=== PATIENT | male | born 1975 | race Caucasian/White ===

== ENCOUNTER 2017-02-20 21:47 | Emergency (ER) | payer MEDICAID ==
[~2017-02-20] VITALS: Ht 172.7 cm; Wt 63.5 kg
[2017-02-20 21:48] VITALS: BP 115/77
[2017-02-20] MEDS ORDERED: KETOROLAC 30 MG/1 ML ONE (22:26)
[2017-02-20] MEDS ORDERED: METHOCARBAMOL 750 MG TABLET ONE (22:26)
[2017-02-20] MEDS ORDERED: KETOROLAC 30 MG/1 ML IM ONE (22:30)
[2017-02-20] MEDS ORDERED: METHOCARBAMOL 750 MG TABLET PO ONE (22:30)
== END 2017-02-20 22:51 | disposition home or self-care (01) ==
LOC: ED 22:42
DX: M54.5 Low back pain (principal)
CPT/HCPCS: 96372; 99283; J1885

== ENCOUNTER 2018-05-25 15:52 | Emergency (ER) | payer MEDICAID ==
[~2018-05-25] VITALS: Ht 167.6 cm; Wt 60.3 kg
[2018-05-25] MEDS ORDERED: SPIR50TA4 PO (16:16)
[2018-05-25] MEDS ORDERED: PNV1TAB.5 PO (16:16)
[2018-05-25] MEDS ORDERED: ESTR2TAB PO (16:16)
[2018-05-25 18:04] VITALS: BP 114/83
== END 2018-05-25 18:06 | disposition home or self-care (01) ==
LOC: ED 18:00
DX: F44.6 Conversion disorder with sensory symptom or deficit (principal); F17.200 Nicotine dependence, unspecified, uncomplicated
CPT/HCPCS: 70450; 99284

== ENCOUNTER 2018-07-30 17:48 | Emergency (ER) | payer MEDICAID ==
[~2018-07-30] VITALS: Ht 167.6 cm; Wt 56.4 kg
[~2018-07-30 17:48] MED LIST: ESTR2TAB PO; PNV1TAB.5 PO; SPIR50TA4 PO
[2018-07-30] MEDS ORDERED: SODIUM CHLORIDE FLUSH 10ML SYR IVF ONE (18:00)
[2018-07-30 18:27] LABS: BASOPHILS # (AUTO) 0.06 x10^3/uL (0-0.1); BASOPHILS % (AUTO) 1 % (0-1); EOSINOPHILS # (AUTO) 0.01 x10^3/uL (0-0.4); EOSINOPHILS % (AUTO) 0 % (1-7); LYMPHOCYTES # (AUTO) 1.31 x10^3/uL (1-3.4); LYMPHOCYTES % (AUTO) 10 % (22-44); MD NO; MEAN CORPUSCULAR HEMOGLOBIN 30.9 pg (27.5-34.5); MEAN CORPUSCULAR HGB CONC 33.9 g/dL (33.2-36.2); MONOCYTES # (AUTO) 0.24 x10^3/uL (0.2-0.8); MONOCYTES % (AUTO) 2 % (2-9); NEUTROPHILS # (AUTO) 11.48 x10^3/uL (1.8-6.8); NEUTROPHILS % (AUTO) 88 % (42-75); PLATELET COUNT 399 x10^3/uL (130-400); RED BLOOD COUNT 5.23 x10^6/uL (4.38-5.82); RED CELL DISTRIBUTION WIDTH 14.4 % (9.4-14.8)
[2018-07-30 18:40] LABS: ALANINE AMINOTRANSFERASE 51 U/L (12-78); ALBUMIN 4.2 g/dL (3.4-5.0); ANION GAP 8 mmol/L (5-15); CALCIUM 9.6 mg/dL (8.5-10.1); CHLORIDE 98 mmol/L (98-107); CREATININE 0.91 mg/dL (0.7-1.3)
[2018-07-30 18:42] LABS: ALKALINE PHOSPHATASE 65 U/L (45-117); BILIRUBIN,TOTAL 0.7 mg/dL (0.2-1.0); TOTAL PROTEIN 8.1 g/dL (6.4-8.2)
--- NOTE | 2018-07-30 18:53 | NUR ---
Pt to 15 from lobby via wheelchair
[2018-07-30 19:28] LABS: MICROSCOPIC NOT IND
[2018-07-30] MEDS ORDERED: HYDROcodone/APAP 5/325 TABLET PO ONE (19:30)
[2018-07-30 19:32] LABS: CULTURE INDICATED? NO
--- NOTE | 2018-07-30 19:47 | NUR ---
PT ASLEEP SO PAIN MEDS ARE BEING HELD AT THIS TIME.
[2018-07-30 20:30] VITALS: BP 127/69
== END 2018-07-30 20:32 | disposition home or self-care (01) ==
LOC: ED 19:42
DX: R51 Headache (principal); R11.2 Nausea with vomiting, unspecified; M79.10 Myalgia, unspecified site
CPT/HCPCS: 36415; 80053; 81003; 83690; 85025; 99283

== ENCOUNTER 2018-09-07 02:18 | Emergency (ER) | payer MEDICAID ==
[~2018-09-07] VITALS: Ht 167.6 cm; Wt 70.0 kg
[2018-09-07] MEDS ORDERED: ASPIRIN 81 MG TABLET CHEW ONE (02:59)
[2018-09-07] MEDS ORDERED: ASPIRIN 81 MG TABLET CHEW PO ONE (03:00)
[2018-09-07] MEDS ORDERED: AZIT500T5 PO (03:04)
[2018-09-07 03:17] LABS: BASOPHILS # (AUTO) 0.05 x10^3/uL (0-0.1); BASOPHILS % (AUTO) 1 % (0-1); EOSINOPHILS # (AUTO) 0.05 x10^3/uL (0-0.4); EOSINOPHILS % (AUTO) 1 % (1-7); LYMPHOCYTES # (AUTO) 2.11 x10^3/uL (1-3.4); LYMPHOCYTES % (AUTO) 27 % (22-44); MD NO; MEAN CORPUSCULAR HEMOGLOBIN 30.6 pg (27.5-34.5); MEAN CORPUSCULAR HGB CONC 33.8 g/dL (33.2-36.2); MEAN CORPUSCULAR VOLUME 90.6 fL (81-97); MEAN PLATELET VOLUME 6.8 fL (7.4-10.4); MONOCYTES # (AUTO) 0.53 x10^3/uL (0.2-0.8); MONOCYTES % (AUTO) 7 % (2-9); NEUTROPHILS # (AUTO) 5.07 x10^3/uL (1.8-6.8); NEUTROPHILS % (AUTO) 65 % (42-75); PLATELET COUNT 325 x10^3/uL (130-400); RED BLOOD COUNT 5.04 x10^6/uL (4.38-5.82); RED CELL DISTRIBUTION WIDTH 13.5 % (9.4-14.8)
[2018-09-07 03:28] LABS: ALBUMIN 3.8 g/dL (3.4-5.0); ANION GAP 6 mmol/L (5-15); CHLORIDE 103 mmol/L (98-107); CREATININE 0.79 mg/dL (0.7-1.3)
[2018-09-07 03:32] LABS: TROPONIN I < 0.015 ng/mL (0.000-0.045)
[2018-09-07 04:05] VITALS: BP 134/77
--- NOTE | 2018-09-07 04:06 | NUR ---
PT RESTING ON [facility], MONITORS IN PLACE, SIDERAILS UP X2, CALL LIGHT WITHIN REACH, CHART UP FOR RECHECK
--- NOTE | 2018-09-07 04:07 | NUR ---
LATE ENTRY 0257- PT PRESENTED WITH C/O CP, STATED " I'VE BEEN STRESSED". MONITORS APPLIED, CALL LIGHT WITHIN REACH, AWAITING LAB ANDXRAY RESULTS
== END 2018-09-07 04:25 | disposition home or self-care (01) ==
LOC: ED 02:59
DX: R07.89 Other chest pain (principal)
CPT/HCPCS: 36415; 71045; 80048; 82040; 84484; 85025; 93005; 99284

== ENCOUNTER 2019-06-09 16:58 | Emergency (ER) | payer MEDICAID ==
[~2019-06-09] VITALS: Ht 167.6 cm; Wt 60.6 kg
[~2019-06-09 16:58] MED LIST changes: +AZIT500T10 PO
[2019-06-09 17:27] VITALS: BP 127/45
[2019-06-09] MEDS ORDERED: IBUPROFEN 600 MG TABLET PO ONE (18:30)
== END 2019-06-09 18:19 | disposition home or self-care (01) ==
LOC: EDSEX 16:58 → ED 18:13
DX: S41.112D Laceration without foreign body of left upper arm, subsequent encounter (principal); X58.XXXD Exposure to other specified factors, subsequent encounter; Z48.02 Encounter for removal of sutures; R45.1 Restlessness and agitation; F19.10 Other psychoactive substance abuse, uncomplicated
CPT/HCPCS: 99281